=== PATIENT | male | born 1950 ===

== ENCOUNTER 2017-02-28 20:12 | Emergency (ER) | payer MEDICARE, OTHER ==
--- NOTE | ~2017-02-28 | ER ---
PATIENT'S NAME: GABRIELA YUEN [facility] AGE: 67 Y [address] ROOM: [place] [address] LOCATION: [facility] ADMIT DATE: 02/28/2017 ER/Outpatient Report DISCHARGE DATE: 02/28/2017 FAMILY PHYSICIAN: Damian Omer MD ATTENDING PHYSICIAN: Brittanie Singletary ARRIVAL TIME: 2013 hours. ENCOUNTER TIME: 2015 hours. CHIEF COMPLAINT: Memory loss and confusion/left arm pain. HISTORY OF PRESENT ILLNESS: The patient is a pleasant and well-appearing 67-year-old male, in no acute distress, who complains of a loss of memory earlier today. Was up this morning, reading the paper for about a 30-minute period, but later walked out to the mailbox looking for the paper again to bring it in so he could read it. He did not recall reading the paper the 1st time, and when he stated this to his and three daughters, they became concerned about him having a stroke. He has also had some dizziness here and there in the afternoon. Denies left arm pain at this time, but had some earlier today. Denies chest pain or shortness of breath. Able to recall events repeatedly and accurately on repeated encounters in the emergency department. He is an accurate historian. Appropriate general behavior as per his reporting in the exam room at this time. REVIEW OF SYSTEMS: All systems reviewed by me and negative unless otherwise stated above in the HPI. PAST MEDICAL HISTORY: Includes gout and some general reflux. The patient is also a type 2 non- insulin-dependent diabetic. Some issues with depression, but denies any issues with that as of late. PAST SURGICAL HISTORY: Includes a gallbladder as well as a left-sided wrist surgery which he does not comment further on. MEDICATIONS: Include glucosamine, methylsulfonylmethane, aspirin, allopurinol, cod liver oil, fluoxetine, metformin, and bupropion. PATIENT'S NAME: GABRIELA YUEN [facility] AGE: 67 Y [address] ROOM: [place] [address] LOCATION: [facility] ADMIT DATE: 02/28/2017 ER/Outpatient Report DISCHARGE DATE: 02/28/2017 FAMILY PHYSICIAN: Damian Omer MD ATTENDING PHYSICIAN: Brittanie Singletary ALLERGIES: NO KNOWN DRUG ALLERGIES. SOCIAL HISTORY: The patient is a former smoker and has not had any cigarettes in the last 10 years. OBJECTIVE: VITAL SIGNS: Weight 94.0 kg, height 5 feet 7 inches, blood pressure 184/95, pulse of 65, respirations 16, and temperature 97.1 degrees Fahrenheit taken tympanically. SpO2 of 97% on room air. [place] coma score 15. Current pain 0/10. GENERAL: The patient is an obese male, in no acute distress. He is calm, alert and oriented to person, place, and time. HEENT: Head is atraumatic and normocephalic. Eyes, showing clear conjunctiva bilaterally. No discharge. Pupils are PERRLA bilaterally. EOM at 5 bilaterally. No nystagmus. No ptosis. Ears patent bilaterally with tympanic membrane showing good light reflex bilaterally. Nose shows pink turbinates that are not swollen. No drainage. Throat with midline uvula. No exudates, erythema, or tonsillar hypertrophy. NECK: Supple and without lymphadenopathy. Trachea midline. No JVD. Brudzinski's and Kernig's both negative. Full range of motion of the neck without pain. The patient was negative for carotid bruit bilaterally. LUNGS: Clear to auscultation bilaterally. No wheezes, crackles, rhonchi, or stridor. Normal respiratory effort. HEART: Regular rate and rhythm. No S3, S4, or extra sounds. SKIN: [place] warm and dry. NEUROLOGIC: Cranial nerves II through XII grossly intact. Strength 5/5 bilaterally in the upper and lower extremities. Dehydrator Operator strength is symmetric. Gait is steady and without assistance. Deep tendon reflexes +2/4 bilaterally at the knee and ankle levels. Babinski is downgoing. Negative pronator drift. Negative hlrveo-oqvq-ghzvyl test. The patient able to identify objects and appropriate scenarios on pictograph exam. LABORATORY DATA: Renal panel; sodium 135, potassium 3.6, chloride 102, CO2 of 27, anion gap 9.6, glucose 132, and calcium 9.0. BUN 12, creatinine 1.2, albumin 3.6, phosphorus 3.1, and estimated GFR of 63. Troponin I is less than 0.040. CBC; white blood cell 9.1, red blood cell 4.34, hemoglobin 13.5, hematocrit 38.9, MCV 89.6, MCH 31.1, RDW 13.3, and platelet 228. MPV 8.1. Auto diff negative except for the marginal high IG percentage at 0.4. PTT 26, protime 11, and INR 1.05. EKG shows normal sinus rhythm. Heart rate is 63 beats per minute. No ST or T- PATIENT'S NAME: GABRIELA YUEN [facility] AGE: 67 Y [address] ROOM: [place] [address] LOCATION: ED ADMIT DATE: 02/28/2017 ER/Outpatient Report DISCHARGE DATE: 02/28/2017 FAMILY PHYSICIAN: Damian Omer MD ATTENDING PHYSICIAN: Brittanie Singletary wave abnormalities. CT scan without contrast shows no acute findings. Over-read states mild atrophy like change in nonspecific white matter hypodensity. No intracranial mass or midline shift or hydrocephalus or acute hemorrhage. Paranasal sinuses and mastoid air cells are unremarkable. No skull fractures. Discussed all the above results with the patient in detail. ASSESSMENT: Transient ischemic attack. PLAN: No acute events at this time. We will discharge home in stable condition. Recommend the patient follow up with his regular care provider within the week. PCP is Dr. Omer. All their questions were answered and they verbalized understanding. Take all medications as prescribed. Discussed med risks, side effects, and benefits in detail. Give plenty of rest and liquids. Take Tylenol or ibuprofen as directed for fever or discomfort. Return to the emergency department or primary care provider if symptoms persist or worsen. The patient was discharged home in stable status with his via private auto. VAHID LIMA PA-C FOR BRITTANIE SINGLETARY MD SMR/modl /[id number] d: 03/01/17 0057 t: 03/03/17 0510, OUTPATIENT REPORT
[2017-02-28 20:53] LABS: BASOPHIL % 0.3 %; EOSINOPHIL # 0.2 K/uL (0.0-0.5); EOSINOPHIL % 1.6 %; HEMATOCRIT 38.9 % (37.0-53.0); HEMOGLOBIN 13.5 g/dL (11.0-16.0); IMMATURE GRANULOCYTE % 0.4 %; LYMPHOCYTE # 2.9 K/uL (0.8-4.0); LYMPHOCYTE % 32.1 %; MCH 31.1 pg (27.0-34.0); MCHC 34.7 gm/dL (32.0-36.5); MCV 89.6 fl (83.0-98.0); MONOCYTE # 0.8 K/uL (0.0-1.0); MPV 8.1 fl (9.4-12.4); NEUTROPHIL # (ANC) 5.2 K/uL (1.4-9.0); NEUTROPHIL % 56.6 %; NRBC % 0 /100WBC (0-0.00); PLATELET COUNT 228 K/uL (150-450); RBC 4.34 M/uL (3.50-5.50); RDW-CV 13.3 % (11.9-14.6); WBC 9.1 K/uL (4.0-11.0)
[2017-02-28 21:01] LABS: INR - (THERAPEUTIC) 1.05 (0.92-1.07); PTT 26 SECONDS (25-32)
[2017-02-28 21:06] LABS: ALBUMIN 3.6 gm/dL (3.5-5.0); ANION GAP 9.6 (10.0-19.0); CREATININE 1.2 mg/dL (0.6-1.3); PHOSPHORUS 3.1 mg/dL (2.5-4.9); POTASSIUM 3.6 mMol/L (3.7-5.1)
== END 2017-02-28 21:37 | disposition disaster alternative care site (69) ==
LOC: GMED 20:12
PROVIDERS: Emergency Medicine
DX: G45.9 Transient cerebral ischemic attack, unspecified (principal); E11.9 Type 2 diabetes mellitus without complications; F32.9 Major depressive disorder, single episode, unspecified; K21.9 Gastro-esophageal reflux disease without esophagitis; Z98.890 Other specified postprocedural states; Z79.899 Other long term (current) drug therapy; Z79.82 Long term (current) use of aspirin; Z87.891 Personal history of nicotine dependence